=== PATIENT | male | born 1965 | race Caucasian/White ===

== ENCOUNTER 2018-06-04 10:23 | Emergency (ER) | payer OTHER ==
--- NOTE | 2018-06-04 10:51 | EDPHY ---
H & P Time Seen by Provider: 06/04/18 10:50 HPI/ROS: Chief complaint. Chest pain HPI. Patient is a 52-year-old male with 4 day history of left chest tightness and left shoulder pain. It began while driving to [place] to go [place]. He also had some right forearm pain. Last night he had sense of palpitations. Some tightness in his chest. Slight sweaty and nausea. Discomfort is really central in his chest. Patient skied all weekend and tells me how good the snow was. His symptoms were not worse with exertion or deep breathing especially during skiing. He has no leg symptoms. He has had similar previous chest discomfort with normal workup. He denies heart diabetes hypertension history. He does tell me he has had increased anxiety recently. ROS 10 systems were reviewed and negative with the exception of the elements mentioned in the history of present illness Past Medical/Surgical History: Anxiety Family history grandfather had an NH and uncle had an NH but no closer relatives. Social History: Single, nonsmoker, no alcohol Smoking Status: Never smoked Physical Exam: General Appearance: Alert pleasant well-developed male mild distress vital signs are stable Eyes: Pupils equal and round no pallor or injection. ENT, Mouth: Mucous membranes are moist. Respiratory: There are no retractions, lungs are clear to auscultation. Cardiovascular: Regular rate and rhythm. Gastrointestinal: Abdomen is soft and nontender, no masses, bowel sounds normal. Neurological: Awake and alert, sensory and motor exams grossly normal. Skin: Warm and dry, no rashes. Musculoskeletal: Neck is supple nontender. Extremities symmetrical, full range of motion. Psychiatric: Patient is oriented X 3, there is no agitation. Constitutional: Initial Vital Signs Temperature (C) 36.5 C 06/04/18 10:31 Heart Rate 55 L 06/04/18 10:31 Respiratory Rate 19 06/04/18 10:31 Blood Pressure 155/100 H 06/04/18 10:31 O2 Sat (%) 99 06/04/18 10:31 O2 Delivery Mode Room Air Allergies/Adverse Reactions: No Known Allergies Allergy (Unverified 06/04/18 10:30) Home Medications: Medication Instructions Recorded Anxiety Med 06/04/18 Medical Decision Making - Diagnostics EKG Interpretation: EKG interpreted by me shows sinus bradycardia normal interval. There is left axis deviation with left anterior fascicular block. QRS otherwise normal. There is no significant ST elevation or depression. No arrhythmia. The rate is 49 Imaging Results: Imaging Impressions Chest X-Ray 06/04/18 10:41 Impression: Possible airways disease. Chest x-ray interpreted by me is negative Procedures: IV normal saline, monitor ED Course/Re-evaluation: Re-evaluation patient is stable. He and I discussed imaging lab EKG findings. We discussed treatment plan including criteria for return importance of follow- up and further evaluation. He expresses understanding and agreement Differential Diagnosis: A give the patient a heart score of 1 for his age. He has no risk factors for heart disease. EKG is normal other than left anterior fascicular block. History is not concerning. Troponin is 0. - Data Points Laboratory Results: Laboratory Results 06/04/18 11:00 06/04/18 11:00 06/04/18 06/04/18 06/04/18 11:12 11:00 11:00 WBC 5.31 10^3/uL 10^3/uL (3.80-9.50) RBC 5.04 10^6/uL 10^6/uL (4.40-6.38) Hgb 15.5 g/dL g/dL (13.7-17.5) Hct 45.5 % % (40.0-51.0) MCV 90.3 fL fL (81.5-99.8) MCH 30.8 pg pg (27.9-34.1) MCHC 34.1 g/dL g/dL (32.4-36.7) RDW 12.9 % % (11.5-15.2) Plt Count 229 10^3/uL 10^3/uL (150-400) MPV 10.2 fL fL (8.7-11.7) Neut % (Auto) 68.3 % % (39.3-74.2) Lymph % (Auto) 20.5 % % (15.0-45.0) [place] % (Auto) 9.8 % % (4.5-13.0) Eos % (Auto) 0.8 % % (0.6-7.6) Baso % (Auto) 0.4 % % (0.3-1.7) Nucleat RBC Rel Count 0.0 % % (0.0-0.2) Absolute Neuts (auto) 3.63 10^3/uL 10^3/uL (1.70-6.50) Absolute Lymphs (auto) 1.09 10^3/uL 10^3/uL (1.00-3.00) Absolute Monos (auto) 0.52 10^3/uL 10^3/uL (0.30-0.80) Absolute Eos (auto) 0.04 10^3/uL 10^3/uL (0.03-0.40) Absolute Basos (auto) 0.02 10^3/uL 10^3/uL (0.02-0.10) Absolute Nucleated RBC 0.00 10^3/uL 10^3/uL (0-0.01) Immature Gran % 0.2 % % (0.0-1.1) Immature Gran # 0.01 10^3/uL 10^3/uL (0.00-0.10) Sodium 134 mEq/L L mEq/L (135-145) Potassium 4.5 mEq/L mEq/L (3.5-5.2) Chloride 102 mEq/L mEq/L (97-110) Carbon Dioxide 25 mEq/l mEq/l (22-31) Anion Gap 7 mEq/L mEq/L (6-14) BUN 12 mg/dL mg/dL (7-23) Creatinine 0.9 mg/dL mg/dL (0.7-1.3) Estimated GFR > 60 Glucose 100 mg/dL mg/dL (70-100) Calcium 9.5 mg/dL mg/dL (8.5-10.4) POC Troponin I 0.00 ng/mL ng/mL (0.00-0.08) Point of Care Test Results: Chemistry 06/04/18 11:12 POC Troponin I 0.00 ng/mL ng/mL (0.00-0.08) Departure - Departure Disposition: Home, Routine, Self-Care Clinical Impression: Chest pain Qualifiers: Chest pain type: unspecified Qualified Code(s): R07.9 - Chest pain, unspecified Condition: Good Instructions: Chest Pain (ED) Additional Instructions: Easy activity today. Return for worsening chest discomfort or breathing. Follow-up with Cardiology in the next 1-2 days for further evaluation Referrals: Josep Guerrero MD [Primary Care Provider] - As per Instructions Barbara Giraldo MD [Medical Doctor] - 2-3 days, call for appt.
[2018-06-04 11:19] LABS: PLATELET COUNT 229 10^3/uL (150-400)
[2018-06-04 11:49] VITALS: BP 173/104
--- NOTE | 2018-06-04 14:26 | CPEKG ---
Test Reason : OPEN Blood Pressure : / mmHG Vent. Rate : 049 BPM Atrial Rate : 049 BPM P-R Int : 177 ms QRS Dur : 119 ms QT Int : 471 ms P-R-T Axes : 069 -70 021 degrees QTc Int : 426 ms Sinus bradycardia Left anterior fascicular block Borderline ST elevation, anterior leads Confirmed by Carlos Zhu [id number]) on 06/04/2018 2:25:39 PM Referred By: PHYSICIAN ED Confirmed By:Carlos Zhu
== END 2018-06-04 13:04 | disposition home or self-care (01) ==
DX: R07.9 Chest pain, unspecified (principal)
CPT/HCPCS: 84484-ER